=== PATIENT | male | born 1985 ===

== ENCOUNTER 2021-02-10 14:21 | Emergency (ER) | payer BC ==
[~2021-02-10] VITALS: Ht 177.8 cm; Wt 102.1 kg
== END 2021-02-10 23:00 | disposition home or self-care (01) ==
LOC: ER 14:21
DX: K81.0 Acute cholecystitis (principal); E86.0 Dehydration; E87.8 Other disorders of electrolyte and fluid balance, not elsewhere classified; R10.13 Epigastric pain; R11.11 Vomiting without nausea